=== PATIENT | female | born 1975 | race African-American/Black ===

== ENCOUNTER 2022-04-14 23:23 | Emergency (ER) | payer MEDICAID, OTHER ==
[~2022-04-14] VITALS: Ht 162.6 cm; Wt 90.0 kg
[2022-04-14] MEDS ORDERED: METHYLPREDNISOLONE SOD SUCC 125 MG/2 ML VIAL IV STA (23:32)
[2022-04-14] MEDS: ALBUTEROL (0.083%) 2.5MG/3ML NEB HHN SCH ×2 (23:50→23:54)
[2022-04-14 23:54] LABS: CHLORIDE 104 mEq/L (98-107)
[2022-04-14 23:59] LABS: BASOPHILS % 0.9 % (0.0-2.0); EOSINOPHILS % 5.1 % (0.0-5.0); HEMATOCRIT. 37.8 % (36.0-48.0); LYMPHOCYTES % 40.4 % (20.0-50.0); MEAN CORPUSCULAR HEMOGLOBIN 25.9 pg (28.0-32.0); MEAN CORPUSCULAR VOLUME 81.4 fL (81.0-99.0); MONOCYTES % 6.2 % (2.0-8.0); NEUTROPHILS % 47.4 % (40.0-76.0); PLATELET 234 x1000/uL (130-400); RED BLOOD CELL COUNT 4.65 mill/uL (4.2-5.4); RED CELL DISTRIBUTION WIDTH 15.1 % (11.6-14.6)
[2022-04-15] MEDS: ALBUTEROL (0.083%) 2.5MG/3ML NEB HHN SCH (00:11)
[2022-04-15] MEDS ORDERED: ALBUTEROL (0.083%) 2.5MG/3ML NEB HHN STA (03:05)
[2022-04-15 06:00] VITALS: BP 146/92
== END 2022-04-15 06:30 | disposition short-term general hospital (02) ==
LOC: ER 23:23 → EDBD 23:23 → ER 04-15 06:30 → CANBEDREQ 04-15 07:44
DX: J96.91 Respiratory failure, unspecified with hypoxia (principal); J45.909 Unspecified asthma, uncomplicated; Z68.34 Body mass index [BMI] 34.0-34.9, adult; E11.9 Type 2 diabetes mellitus without complications; Z20.822 Contact with and (suspected) exposure to COVID-19
CPT/HCPCS: 36415; 71045; 80053; 83880; 84484; 85025; 87426; 93005; 94640; 94660; 96374; 99291; C9803; J2930; Z7610